=== PATIENT | male | born 1940 | race Hispanic/Latino ===

== ENCOUNTER 2017-01-26 08:19 | Day surgery (SDC) | payer BC, MEDICARE ==
[2017-01-21 13:39] VITALS: BMI 35.5
[2017-01-26] MEDS ORDERED: Propofol 10 mg/ml Inj (20 ML) ONE (10:03)
[2017-01-26] MEDS ORDERED: Phenylephrine 10 mg/ml Inj ONE (10:04)
[2017-01-26] MEDS ORDERED: Midazolam 2 MG/2 ML VIAL ONE ×2 (10:04→11:35)
[2017-01-26] MEDS ORDERED: ePHEDrine 50 mg/ml Inj ONE (10:04)
[2017-01-26] MEDS ORDERED: Etomidate 20 mg/10ml Inj IV ONE (10:05)
[2017-01-26] MEDS ORDERED: Lidocaine 1% Inj (20ml) ONE (10:12)
[2017-01-26] MEDS ORDERED: cefTRIAXone (Rocephin) 1 gm Inj ONE (10:14)
[2017-01-26] MEDS ORDERED: Iohexol 240 (50 ml) ONE (10:14)
[2017-01-26] MEDS ORDERED: Lactated Ringer's 1,000 ML IV SCH (11:33)
[2017-01-26] MEDS ORDERED: HYDROmorphone 0.5 mg/0.5 ml ISec IVP PRN (11:33)
[2017-01-26] MEDS ORDERED: Midazolam 2 MG/2 ML VIAL IVP ONE (11:37)
[2017-01-26] MEDS ORDERED: Midazolam 2 MG/2 ML VIAL IV ONE (11:37)
[2017-01-26] MEDS ORDERED: HYDROmorphone 0.5 mg/0.5 ml ISec IVP ONE ×2 (11:45→12:12)
[2017-01-26] MEDS ORDERED: HYDROmorphone 0.5 mg/0.5 ml ISec ONE ×2 (11:45→12:11)
[2017-01-26 11:59] VITALS: RESP 20
[2017-01-26 13:16] VITALS: BP 147/76; PULSE 73; TEMP 97; O2SAT 97
--- NOTE | 2017-01-26 16:51 | OP ---
PROCEDURE DATE: 01/26/2017 PREOPERATIVE DIAGNOSES: Benign prostatic hypertrophy and bladder stones. POSTOPERATIVE DIAGNOSES: Benign prostatic hypertrophy and bladder stones. PROCEDURE: Cystoscopy, vesicle lithotripsy, evacuation of bladder stones and fulguration of prostati c bleeding. ATTENDING SURGEON: Jeremy Rees MD ANESTHESIA: General. SPECIMENS: Bladder stones were sent to pathology. DRAINS: A 20 Georgian 3-way Parsons catheter. COMPLICATIONS: There were none. OPERATIVE FINDINGS: After informed consent was obtained, the patient was taken to the operating room and placed on the operating table. Anesthesia was administered. The patient was placed in dorsal l ithotomy position, prepped and draped in usual sterile fashion. A 26 Georgian resectoscope sheath with a visualizing obturator was placed in the patient's urethra and advanced proximally under direct vis ion. Inspection of the urethra was within normal limits. The prostate was markedly enlarged with oc clusive appearing lateral lobes 4 cm prostatic urethra. There was a large stone noted wedged into th e bladder neck region. The bladder was able to be entered and the stone was pushed back into the cedrick dder. Inspection of the bladder was then made. There were 3 large bladder stones in total, measurin g each approximately 3-4 cm. There were no obvious bladder tumors noted. There was grade I to II tr abeculation with multiple cellules. At this point, a holmium laser fiber was obtained. It was passe d through the resectoscope, and under direct vision, fragmentation of the stones was achieved. The s tones were able to be fragmented into small pieces. The stones appeared very hard in nature, but wer e able to be completely fragmented. An Ellik evacuating device was used to remove the stones from th e bladder. Further inspection revealed a few larger pieces which were remaining and the laser again was used to fragment these larger pieces. The Ellik again was used and all the visible stone was abl e to be irrigated out of the bladder. The remainder of the bladder was now inspected and now the tri gone could be visualized. The ureteral orifices were both able to be identified and appeared within normal limits. There was some oozing noted from the prostate and prostatic urethra. The [employer] elec trode was passed and the prostatic bleeding was then controlled using electrocautery. When hemostasi s was complete, the procedure was completed. There was no active bleeding noted from the bladder. A t this point, the resectoscope was withdrawn and a 20 Georgian 3-way Parsons catheter was passed and plac ed to continuous bladder irrigation. The patient tolerated the procedure well. He was returned to t he supine position and taken to the recovery room awake and in stable condition. Jeremy Rees MD cc: [id number] TT: 01/26/2017 16:50:29 mn
== END 2017-01-26 15:40 | disposition home or self-care (01) ==
LOC: SDS 08:19
PROVIDERS: ATTEND Urology
DX: N21.0 Calculus in bladder (principal); N40.0 Benign prostatic hyperplasia without lower urinary tract symptoms; I11.0 Hypertensive heart disease with heart failure; I50.9 Heart failure, unspecified; E11.9 Type 2 diabetes mellitus without complications; Z79.84 Long term (current) use of oral hypoglycemic drugs
CPT/HCPCS: 52214; 52318; 88300; J0696; J1170; J2250; J2704; J3010; J7120 ×2